=== PATIENT | male | born 1985 | race Caucasian/White ===

== ENCOUNTER 2021-10-17 14:06 | Emergency (ER) | payer OTHER, SELFPAY ==
[2021-10-17] MEDS ORDERED: LIDOCAINE 1% W/EPI 1:100,000 MDV 20 ML VIAL ONE (14:51)
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
[2021-10-17 16:29] VITALS: TEMP 98.2
[2021-10-17 16:31] VITALS: O2SAT 97
[2021-10-17 16:33] VITALS: BP 180/90
== END 2021-10-17 15:51 | disposition home or self-care (01) ==
LOC: ER 14:06
DX: S01.01XA Laceration without foreign body of scalp, initial encounter (principal); R03.0 Elevated blood-pressure reading, without diagnosis of hypertension